=== PATIENT | female | born 1940 ===

== ENCOUNTER 2017-12-21 07:26 | Observation (INO) | payer OTHER ==
[2017-12-21] MEDS ORDERED: REMIFENTANIL HCL 1 MG VIAL ONE (07:30)
[2017-12-21] MEDS ORDERED: fentaNYL 100 MCG/2 ML INJ ONE ×3 (07:30→13:17)
[2017-12-21] MEDS ORDERED: PROPOFOL 200 MG/20 ML VIAL ONE (07:30)
[2017-12-21] MEDS ORDERED: PROPOFOL/EMULSION 500 MG/50 ML BOTTLE IV ONE (07:30)
[2017-12-21] MEDS ORDERED: LIDOCAINE 2% 5 ML SDV ONE (07:37)
[2017-12-21] MEDS ORDERED: ROCURONIUM 50 MG/5 ML VIAL ONE (07:38)
[2017-12-21] MEDS ORDERED: ONDANSETRON 4 MG/2 ML VIAL ONE (07:41)
[2017-12-21] MEDS ORDERED: DEXAMETHASONE 4 MG/ML VIAL ONE (07:41)
[2017-12-21] MEDS ORDERED: BACITRACIN 50,000 UNITS/10 ML SYR IRR ONE (08:08)
[2017-12-21] MEDS ORDERED: BUPIVACAINE 0.25% 30 ML SDV ONE (08:08)
[2017-12-21] MEDS ORDERED: CHLORHEXIDINE GLUC HIBICLENS 118 ML BTL TP ONE (08:08)
[2017-12-21] MEDS ORDERED: THROMBIN (BOVINE) 5,000 UNIT VIAL TP ONE ×2 (08:09→11:54)
[2017-12-21] MEDS ORDERED: ACETAMINOPHEN 500 MG TAB PO ONE (08:31)
[2017-12-21] MEDS ORDERED: LIDOCAINE 1% 2 ML INJ ID PRN (08:31)
[2017-12-21] MEDS ORDERED: ceFAZolin 2 GM/SWFI 2 GM/20 ML SYR IVP ONE (08:31)
[2017-12-21] MEDS ORDERED: LR 1,000 ML IV ONE (08:31)
--- NOTE | 2017-12-21 09:09 | PDANEPAE ---
ANE History of Present Illness L2-S1 microdisc for sciatica ANE Past Medical History - Cardiovascular History Hx Hypertension: Yes Hx Arrhythmias: No Hx Chest Pain: No Hx Coronary Artery / Peripheral Vascular Disease: No Hx CHF / Valvular Disease: No Hx Palpitations: No - Pulmonary History Hx COPD: No Hx Asthma/Reactive Airway Disease: No Hx Recent Upper Respiratory Infection: No Hx Oxygen in Use at Home: No Hx Sleep Apnea: No Sleep Apnea Screening Result - Last Documented: Negative - Neurologic History Hx Cerebrovascular Accident: No Hx Seizures: No Hx Dementia: No - Endocrine History Hx Diabetes: No Obesity: yes - Renal History Hx Renal Disorders: Yes Renal History Comment: kidney stones. 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 brain tumor removal 2008. hysterectomy ANE Review of Systems Review of systems is: negative Review of Systems: - Exercise capacity METS (RN): 4 METS ANE Patient History - Allergies Allergies/Adverse Reactions: morphine Allergy (Verified 12/03/17 12:04) Vomiting nabumetone [From Relafen] Allergy (Verified 12/03/17 12:06) Hives - Home Medications Home medications: home medication list seen and reviewed Home Medications: Allopurinol [Allopurinol 300 MG (RX)] 300 mg PO DAILY 12/03/17 [Last Taken 12/20] Citalopram Hydrobromide [Celexa] 20 mg PO DAILY 12/03/17 [Last Taken 12/20/17] Gabapentin [Neurontin 300 MG (*)] 300 mg PO DAILY 12/03/17 [Last Taken 12/20/17] Gabapentin [Neurontin 300 MG (*)] 600 mg PO HS 12/03/17 [Last Taken 12/20/17] Ibuprofen [Motrin (*)] 800 mg PO DAILY PRN 12/03/17 [Last Taken 12/14/17] Latanoprost 0.005% [Xalatan 0.005% (*)] 1 drops EACHEYE HS 12/03/17 [Last Taken 12/20/17] Loperamide HCl [Imodium 2 mg (*)] 2 mg PO DAILY 12/03/17 [Last Taken 12/20/17] Losartan/Hydrochlorothiazide [Losartan-Hctz 100-25 Mg Tab] 1 each PO DAILY 12/03 [Last Taken 12/20/17] Oxybutynin Chloride Xl [Ditropan Xl 5mg (*)] 10 mg PO BID 12/03/17 [Last Taken 12/20/17] - NPO status NPO Since - Liquids (Date): 12/20/17 NPO Since - Liquids (Time): 22:30 NPO Since - Solids (Date): 12/20/17 NPO Since - Solids (Time): 18:00 - Anes Hx Anes Hx: no prior problems - Smoking Hx Smoking Status: Former smoker - Family Anes Hx Family Hx Anesthesia Complications: none ANE Labs/Vital Signs - Vital Signs Blood Pressure: 140/68 Heart Rate: 56 Respiratory Rate: 18 O2 Sat (%): 94 Height: 172.72 cm Weight: 97.522 kg ANE Physical Exam - Airway Neck exam: FROM Mallampati Score: Class 2 Mouth exam: dentures - Pulmonary Pulmonary: no respiratory distress - Cardiovascular Cardiovascular: regular rate and rhythym - ASA Status ASA Status: II ANE Anesthesia Plan Anesthesia Plan: general endotracheal anesthesia
--- NOTE | 2017-12-21 10:07 | PDHPUP ---
History & Physical Update H&P update statement: This history and physical update is based on an assessment of the patient which was completed after admission or registration (within 24 hours), but prior to the surgery/procedure. H&P update: H&P reviewed & patient examined, no change in patient's condition since H&P completed
--- NOTE | 2017-12-21 11:13 | POSTANESTH ---
Post Anesthetic Evaluation Cardiovascular Status: Normal, Stable Respiratory Status: Normal, Stable Level of Consciousness/Mental Status: Can Participate in Eval Pain Control: Adequate, Prn Tx Ordered Nausea/Vomiting Control: Adequate, Prn Tx Ordered Complications Possibly Related to Anesthesia: None Noted
[2017-12-21] MEDS ORDERED: LR 500 ML IV PRN (12:02)
[2017-12-21] MEDS ORDERED: OXYCODONE/APAP 5/325 TAB PO PRN (12:02)
[2017-12-21] MEDS ORDERED: PROMETHAZINE HCL 25 MG/ML INJ IVP PRN (12:02)
[2017-12-21] MEDS ORDERED: ACETAMINOPHEN 500 MG TAB PO PRN (12:02)
[2017-12-21] MEDS ORDERED: NALOXONE HCL 0.4 MG/ML INJ IVP PRN ×2 (12:02→13:04)
[2017-12-21] MEDS ORDERED: HYDROmorphONE/DILAUDID 1 MG/ML INJ IVP PRN (12:02)
[2017-12-21] MEDS ORDERED: HYDROCODONE/APAP 5/325 TAB PO PRN (12:02)
[2017-12-21] MEDS ORDERED: ONDANSETRON 4 MG/2 ML VIAL IVP PRN ×2 (12:02→13:04)
[2017-12-21] MEDS ORDERED: LACTULOSE 20 GM/30 ML UDCUP PO PRN (13:04)
[2017-12-21] MEDS ORDERED: ONDANSETRON DISINTEGRATING 4 MG TAB PO PRN (13:04)
[2017-12-21] MEDS ORDERED: HYDROmorphONE/DILAUDID 2 MG/ML INJ IVP PRN (13:04)
[2017-12-21] MEDS ORDERED: BISACODYL 10 MG SUPP PR PRN (13:04)
[2017-12-21] MEDS ORDERED: diphenhydrAMINE 25 MG CAP PO PRN (13:04)
[2017-12-21] MEDS ORDERED: MAGNESIUM HYDROXIDE 30 ML UDCUP PO PRN (13:04)
[2017-12-21] MEDS ORDERED: HYDROmorphONE/DILAUDID 6 MG/30 ML PCA IV PRN (13:04)
[2017-12-21] MEDS ORDERED: ACETAMINOPHEN 325 MG TAB PO PRN (13:04)
--- NOTE | 2017-12-21 13:09 | SOAPPROG ---
SOAP Progress Note Assessment/Plan: Assessment: 77 yo F sp Left L2/3, L4/5, L5/S1 microdecompression Plan: stable PT/OT ARMIN x 1 please call with neuro changes 12/21/17 13:08 Subjective: + back pain, no leg pain. Objective: Vital Signs Temp Pulse Resp BP Pulse Ox 36.4 C 56 L 18 140/68 H 94 12/21/17 08:35 12/21/17 09:09 12/21/17 09:09 12/21/17 09:09 12/21/17 09:09 Awake, alert PERRL, no facial droop YAMEL x 4 + light touch ICD10 Worksheet Patient Problems: Problems Problem Status Onset Lumbar stenosis Acute - ICD10 Problem Qualifiers (1) Lumbar stenosis Qualifiers: Neurogenic claudication status: with neurogenic claudication Qualified Code (s): M48.062 - Spinal stenosis, lumbar region with neurogenic claudication
[2017-12-21] MEDS ORDERED: NS W/ 20 KCl/L 1,000 ML IV SCH (13:15)
[2017-12-21] MEDS ORDERED: HYDROmorphONE/DILAUDID 2 MG/ML INJ ONE (13:17)
[2017-12-21] MEDS: fentaNYL 100 MCG/2 ML INJ IVP PRN ×2 (13:22→13:38)
[2017-12-21] MEDS: HYDROmorphONE/DILAUDID 2 MG/ML INJ IVP PRN ×2 (13:33→13:44)
[2017-12-21] MEDS: ceFAZolin 2 GM/SWFI 2 GM/20 ML SYR IVP SCH ×2 (14:54→23:14)
[2017-12-21] MEDS: HYDROCODONE/APAP 5/325 TAB PO PRN ×2 (14:54→20:35)
[2017-12-21] MEDS: METHOCARBAMOL 750 MG TAB PO PRN (14:55)
--- NOTE | 2017-12-21 15:19 | GOP ---
[f rep st] OPERATIVE REPORT DATE OF OPERATION: 12/21/2017 SURGEON: Shailesh Soto MD PHILOSOPHY AND RELIGION INSTRUCTOR: Javy Fish P.A.-C. ANESTHESIA: General endotracheal. PREOPERATIVE DIAGNOSIS: 1. Critical multilevel lumbar spinal stenosis. 2. Severe degenerative arthritis. 3. Left-sided L5-S1 disk herniation. 4. Intractable left lower extremity radiculopathy and bilateral lower extremity neurogenic claudicat ion. 5. Failed conservative care. 6. Obesity. 7. 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 POSTOPERATIVE DIAGNOSIS: 1. Critical multilevel lumbar spinal stenosis. 2. Severe degenerative arthritis. 3. Left-sided L5-S1 disk herniation. 4. Intractable left lower extremity radiculopathy and bilateral lower extremity neurogenic claudicat ion. 5. Failed conservative care. 6. Obesity. 7. 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 PROCEDURE PERFORMED: 1. Left-sided L2-3, L4-5 and L5-S1 posterior hemilaminectomy, medial facetectomy, foraminotomy, and diskectomy. 2. Diskectomy at L5-S1. 3. Use of intraoperative microscopy and fluoroscopy. FINDINGS: ESTIMATED BLOOD LOSS: 150 mL. DESCRIPTION OF PROCEDURE: After informed consent was obtained, the patient was taken to the operatin g room and placed in the prone position on the Celso frame. The lumbosacral area was prepped and dr aped in a sterile fashion. After fluoroscopic localization of the correct levels, the subcutaneous a nd intramuscular tissues were infiltrated with local anesthesia. A midline linear incision was then created over the L2 to S1 spinous processes. This was carried mikey n to the fascial layer, which was incised using the monopolar electrocautery and carried in a subfasc ial plane along the spinous processes and lamina on the left. The arthritis was so severe that it wa s very difficult to figure out what was normal anatomy. Intraoperative fluoroscopy was utilized throughout the case to verify the correct levels. Posterior hemilaminectomies were performed at each of the L2-3, L4-5 and L5-S1 levels, with medial fa cetectomies required in order to adequately decompress the central canal and lateral recesses on the left and right sides. Care was taken to explore rostrally, caudally, medially and laterally at each of the levels for thorough decompressions. And a diskectomy at the L5-S1 level where there was a lar ge subannular disk herniation that was somewhat calcified in and appeared to be there for a long time . Following adequate decompression, meticulous hemostasis was achieved as best we could. Note that the patient had significant venous backflow probably due to her obesity and positioning in her abdomen. Nonetheless, we did achieve adequate hemostasis and placed a drain. The wound and epidural space were copiously irrigated. The subcutaneous and intramuscular tissues we re re-infiltrated with local anesthesia after placement of the drain and clamping. The wound was the n closed in a layered fashion using interrupted Vicryl sutures followed by Steri-Strips on the skin. COMPLICATIONS: None. INDICATIONS FOR PROCEDURE: The patient is a 77-year-old woman with intractable left lower extremity radicular pain and severe neurogenic claudication secondary to multilevel severe lumbar degenerative spinal stenosis, with critical narrowing to the point of profound loss of bowel and bladder function. She is also morbidly obese. She presents now for surgical decompression, knowing that the potentia l for favorable outcome is limited. DISPOSITION: The patient was extubated and transferred to the recovery room in stable condition. /[id number]/MODL
[2017-12-21 15:36] VITALS: RESP 16
[2017-12-21] MEDS: POLYETHYLENE GLYCOL 3350 17 GM PKT PO SCH ×2 (18:04→20:36)
[2017-12-21] MEDS: oxyCODONE IR 5 MG TAB PO PRN ×2 (18:04→19:09)
[2017-12-21] MEDS: FAMOTIDINE 20 MG TAB PO SCH (20:34)
[2017-12-21] MEDS: OXYBUTYNIN 5 MG EXT REL TAB PO SCH (20:35)
[2017-12-21] MEDS: SENNOSIDES/DOCUSATE SODIUM TAB PO SCH (20:36)
[2017-12-21] MEDS ORDERED: LATANOPROST 0.005% 2.5 ML OPHT DROPS EACHEYE SCH (21:00)
[2017-12-21] MEDS ORDERED: GABAPENTIN 300 MG CAP PO SCH (21:00)
[2017-12-22 07:51] VITALS: TEMP 98.6
--- NOTE | 2017-12-22 07:52 | SOAPPROG ---
SOAP Progress Note Assessment/Plan: Assessment: 77 yo F POD #1 Left L2/3, L4/5, L5/S1 microdecompression Plan: stable and doing well overall PT/OT ARMIN will stay in for about 5 days hopefully dc home today wean oxygen please call with neuro changes 12/21/17 13:08 12/22/17 07:51 Subjective: continued back pain, no leg pain, no weakness. Objective: Vital Signs Temp Pulse Resp BP Pulse Ox 37.0 C 72 16 110/64 97 12/22/17 07:47 12/22/17 07:47 12/22/17 07:47 12/22/17 07:47 12/22/17 07:47 12/21/17 12/22/17 12/23/17 05:59 05:59 05:59 Intake Total 2850 Output Total 2960 Balance -110 AAOx4, +FC PERRL, EOMI, no facial droop 5/5 + light touch C/D/I ICD10 Worksheet Patient Problems: Problems Problem Status Onset Lumbar stenosis Acute - ICD10 Problem Qualifiers (1) Lumbar stenosis Qualifiers: Neurogenic claudication status: with neurogenic claudication Qualified Code (s): M48.062 - Spinal stenosis, lumbar region with neurogenic claudication
[2017-12-22] MEDS: POLYETHYLENE GLYCOL 3350 17 GM PKT PO SCH (08:40)
[2017-12-22] MEDS: oxyCODONE IR 5 MG TAB PO PRN ×3 (08:41→12:46)
[2017-12-22] MEDS: SENNOSIDES/DOCUSATE SODIUM TAB PO SCH (08:41)
[2017-12-22] MEDS: OXYBUTYNIN 5 MG EXT REL TAB PO SCH (08:42)
[2017-12-22] MEDS: METHOCARBAMOL 750 MG TAB PO PRN ×2 (08:42)
[2017-12-22] MEDS: FAMOTIDINE 20 MG TAB PO SCH (08:42)
[2017-12-22] MEDS ORDERED: CITALOPRAM 20 MG TAB PO SCH (09:00)
[2017-12-22] MEDS ORDERED: GABAPENTIN 300 MG CAP PO SCH (09:00)
[2017-12-22] MEDS ORDERED: ENOXAPARIN 40 MG/0.4 ML SYR SC SCH (09:00)
[2017-12-22] MEDS ORDERED: ALLOPURINOL 300 MG TAB PO SCH (09:00)
[2017-12-22] MEDS ORDERED: LOSARTAN/HCTZ 50/12.5 1 TAB PO SCH (09:00)
[2017-12-22] MEDS ORDERED: LOPERAMIDE HCL 2 MG CAP PO SCH (09:00)
[2017-12-22 12:08] VITALS: BP 109/56; PULSE 70; O2SAT 91
--- NOTE | 2017-12-22 14:32 | ASMTCMCOM ---
CM Note CM Note Notes: Pt medically stable for d/c with family support. PT/OT rec home, no CM d/c needs identified. Date Signed: 12/22/2017 02:32 PM Electronically Signed By:HUBERT Lott
== END 2017-12-22 14:47 | disposition home or self-care (01) ==
LOC: F3N 07:26
PROVIDERS: ADMIT Neurological Surgery; ATTEND Neurological Surgery
PROC: 01NB0ZZ Release Lumbar Nerve, Open Approach (ICD-10-PCS; principal; 2017-12-21 09:15)
PROC: 00NY0ZZ Release Lumbar Spinal Cord, Open Approach (ICD-10-PCS; principal; 2017-12-21 09:15)
DX: M47.26 Other spondylosis with radiculopathy, lumbar region (principal); M48.062 Spinal stenosis, lumbar region with neurogenic claudication; M51.06 Intervertebral disc disorders with myelopathy, lumbar region; K59.2 Neurogenic bowel, not elsewhere classified; N31.9 Neuromuscular dysfunction of bladder, unspecified; E66.01 Morbid (severe) obesity due to excess calories; Z68.32 Body mass index [BMI] 32.0-32.9, adult; I10 Essential (primary) hypertension; Z96.653 Presence of artificial knee joint, bilateral
CPT/HCPCS: 63030; 63035; 76001; 97161; 97165; G8978; G8979; G8980; G8987; G8988; G8989; J0171; J0690; J1100; J1170; J1650; J2405; J2704; J3010